=== PATIENT | female | born 2000 | race African-American/Black ===

== ENCOUNTER 2019-12-15 04:13 | Emergency (ER) | payer OTHER, SELFPAY ==
[2019-12-15 04:16] VITALS: BP 114/67; PULSE 75; RESP 18; TEMP 36.7; O2SAT 100
--- NOTE | 2019-12-15 04:25 | PC.NURSE ---
Pt marching up and down the hallway saying This is fucking stupid. I can't deal with this. Pt directed back to room. Pt's support person yelling. I will just leave. Get checked out. Pt support Person attempted to leave out ambulance doors. Informed him he cannot go out that way. Support person redirected to waiting rm doors. Pt sitting on bed w/ head in her hands. RN introduced herself to pt. Asked pt what we were tx her for. Pt shook her head, threw her hands down and said I can't do this. Pt walked past RN out of room and stormed out to triage waiting rm. RN asked pt if she was leaving pt said yes. RN instructed pt to seek emergency tx if she needed it. RN asked pt if she would sign paperwork before leaving. Pt said no. Triage nurse watched pt amb out of ed w/ steady gait.
== END 2019-12-15 04:30 | disposition left against medical advice (07) ==
DX: O46.90 Antepartum hemorrhage, unspecified, unspecified trimester (principal)
CPT/HCPCS: 99199

== ENCOUNTER 2019-12-15 06:17 | Emergency (ER) | payer OTHER, SELFPAY ==
--- NOTE | ~2019-12-15 | US_ITS ---
EXAMINATION: US OB <= 14 weeks fetus DATE: 12/15/2019 07:58 INDICATION: Bleeding in . Cramping. TECHNIQUE: Real-time transabdominal pelvic ultrasound was performed. COMPARISON: None. FINDINGS: The uterus measures 12.3 x 9.5 x 9.8 cm. There is an intrauterine gestational sac. A yolk sac is daija ntified. The crown rump length measures 2.8 cm, which correlates with an estimated gestational age of 9 weeks and 4 day(s) (+/-) 6 day(s). heart motion is identified measuring 163 beats per minute (bpm) by M-mode Doppler. There is a small subchorionic hematoma measuring 3.6 x 2.4 x 1.4 cm. The ovaries are not visualized. There is no free fluid in the pelvis. IMPRESSION: 1. Single living intrauterine gestation with estimated date of 07/15/20. 2. Small subchorionic hematoma. Reviewed, dictated and finalized at location A.
[2019-12-15 06:22] VITALS: BP 128/81; PULSE 73; RESP 16; TEMP 36.7; O2SAT 100
[2019-12-15 06:49] VITALS: BP 112/67; PULSE 100
[2019-12-15 06:51] VITALS: BP 111/77; BP 114/72; PULSE 82; PULSE 91
[2019-12-15 06:54] LABS: Basophils Percent Auto 0.3 % (0.2-1.2); Eosinophils Percent Auto 0.4 % (0-4.4); Hematocrit 35.7 % (37.0-47.0); Hemoglobin 12.1 g/dL (12.0-15.0); Immature Granulocyte Absolute 0.04 K/mm3 (0.00-0.031); Immature Granulocyte Percent A 0.4 % (0-0.5); Lymphocytes Absolute Auto 2.38 K/mm3 (0.9-3.2); Lymphocytes Percent Auto 24.9 % (18.3-44.2); Mean Corpuscular HGB Conc 33.9 g/dl (32-36); Mean Corpuscular Volume 88.4 fl (80-100); Mean Platelet Volume 9.8 fl (7.4-10.4); Monocytes Absolute Auto 0.6 K/mm3 (0.1-0.6); Monocytes Percent Auto 5.8 % (2.6-8.5); Neutrophils Absolute Auto 6.5 K/mm3 (1.3-6.7); Neutrophils Percent Auto 68.2 % (45.5-73.1); Platelet Count Result 241 k/mm3 (150-375); Red Blood Count 4.04 M/mm3 (4.2-5.4); Red Cell Distribution Width 12.4 % (11.5-14.5); White Blood Count 9.6 K/mm3 (4.5-10.0)
--- NOTE | 2019-12-15 07:24 | ED.FEMALEGU ---
HPI - Female Genitourinary General Chief complaint: Vaginal Bleeding Stated complaint: Possible miscarriage Time Seen by Provider: 12/15/19 07:02 History of Present Illness HPI Narrative: 19 yo female w/ h/o previous miscarriage c/o vaginal bleeding and cramping. She reports that she awoke from sleep last night with heavy vaginal bleeding and severe pelvic cramps. The bleeding has mostly subsided and she has no pain at this time. She reports having 3 positive tests a few weeks ago. She has not had a period since september. Related Data Home Medications Medication Instructions Recorded Confirmed No Home Medications 12/15/19 12/15/19 Allergies Allergy/AdvReac Type Severity Reaction Status Date / Time No Known Allergies Allergy Verified 12/15/19 04:20 Review of Systems Review of Systems: All systems reviewed & are unremarkable except as noted in HPI and below Respiratory: Respiratory: Denies dyspnea Gastrointestinal: Gastrointestinal: Denies nausea and Denies vomiting Genitourinary: Genitourinary: Denies hematuria, Denies dysuria and Denies vaginal discharge Musculoskeletal: Musculoskeletal: Denies back pain Neurologic: Denies dizziness and Denies weakness [facility] Social History Social History (Updated 12/15/19 @ 08:11 by Henry Vieyra MD) Sexual Orientation (if Verbalized by the Patient): Straight or Heterosexual Exam Const: General: no acute distress Orientation/consciousness: patient oriented x3 HENMT: Head: normal to inspection Neck: Neck: normal visual inspection and no lymphadenopathy Chest: Chest palpation & inspection: no tenderness Resp: Effort & Inspection: normal respiratory effort Auscultation: clear to auscultation bilaterally, no rales, no rhonchi and no wheezes Cardio: Jugular venous distension: no JVD Rate: regular rate Rhythm: regular rhythm Heart sounds: no murmurs GI: Inspection: non-distended GI Palp: Yes Soft to palpation and No Tenderness to palpation present (GI) Skin: General skin exam: normal color Neuro: General: patient oriented x3 and moves all extremities Speech: normal speech Extrem: General: no edema Psych: Appearance: well kempt Affect: normal affect Course Vital Signs Vital signs: Vital Signs Temperature 36.7 C 12/15/19 06:22 Pulse Rate 73 12/15/19 06:22 Respiratory Rate 16 12/15/19 06:22 Blood Pressure 128/81 06/03/20 06:22 Pulse Oximetry 100 12/15/19 06:22 Temperature 36.7 C 12/15/19 06:22 Pulse Rate 91 12/15/19 06:51 Respiratory Rate 16 12/15/19 06:22 Blood Pressure 114/72 12/15/19 06:51 Pulse Oximetry 100 12/15/19 06:22 MDM - Female Genitourinary MDM Narrative Medical decision making narrative: Small subchorionic hematoma is likely source of bleeding. She has OB appointment on Friday. Vitals and labs stable. Medical Records Attestation: I reviewed the patient's medical records. Lab Data Attestation: I reviewed the patient's lab results. Result diagrams: 12/15/19 06:45 Labs: Lab Results 12/15/19 12/15/19 12/15/19 Range/Units 06:45 06:45 06:47 WBC 9.6 (4.5-10.0) K/mm3 RBC 4.04 L (4.2-5.4) M/mm3 Hgb 12.1 (12.0-15.0) g/dL Hct 35.7 L (37.0-47.0) % MCV 88.4 (80-100) fl MCH 30.0 (26-34) pg MCHC 33.9 (32-36) g/dl RDW 12.4 (11.5-14.5) % Plt Count 241 (150-375) k/mm3 MPV 9.8 (7.4-10.4) fl Immature Gran % (Auto) 0.4 (0-0.5) % Neut % (Auto) 68.2 (45.5-73.1) % Lymph % (Auto) 24.9 (18.3-44.2) % Fergus % (Auto) 5.8 (2.6-8.5) % Eos % (Auto) 0.4 (0-4.4) % Baso % (Auto) 0.3 (0.2-1.2) % Lymph # (Auto) 2.38 (0.9-3.2) K/mm3 Fergus # (Auto) 0.6 (0.1-0.6) K/mm3 Eos # (Auto) 0.0 (0-0.3) K/mm3 Baso # (Auto) 0.0 (0.0-0.1) K/mm3 Abs Immat Gran (auto) 0.04 H (0.00-0.031) K/mm3 Absolute Neuts (auto) 6.5 (1.3-6.7) K/mm3 Absolute Nucleated RBC 0.0 (0.0-0.012) K/mm3 Nucleated R
[2019-12-15 08:42] VITALS: BP 113/80; PULSE 90; RESP 18; O2SAT 98
== END 2019-12-15 08:45 | disposition home or self-care (01) ==
PROVIDERS: General Practice; Emergency Provider Emergency Medicine
DX: O46.8X1 Other antepartum hemorrhage, first trimester (principal); Z3A.09 9 weeks gestation of pregnancy
CPT/HCPCS: 36415; 76801; 84702; 85025; 85461; 99284